=== PATIENT | female | born 1990 | race Caucasian/White ===

== ENCOUNTER 2017-12-13 04:01 | Emergency (ER) | payer SELFPAY ==
[2017-12-13] MEDS ORDERED: ONDANSETRON 4 MG TAB.RAPDIS PO ONE (04:44)
[2017-12-13] MEDS ORDERED: LORAZEPAM 1 MG TABLET PO ONE (05:13)
[2017-12-13] MEDS ORDERED: ONDANSETRON ODT 4 MG TAB (6 TAB/ER DISP) PO PRN (05:13)
--- NOTE | 2017-12-13 05:15 | ER Document Report ---
ED General - General Chief Complaint: Anxiety Stated Complaint: ANXIETY Time Seen by Provider: 12/13/17 04:25 Mode of Arrival: Ambulatory Information source: Patient Notes: Patient is a 27-year-old female who presents with chief complaint of anxiety. Patient reports that she just moved to the area approximately 6 weeks ago and feels that that was a big mistake. Patient lives with a roommate, and states she does not have any family or friends in the area. Patient reports history of anxiety and depression however she states she is not been on any medications for approximately 1 year. Patient denies any suicidal or homicidal ideations. - Related Data Allergies/Adverse Reactions: Penicillins Allergy (Verified 12/13/17 04:02) Past Medical History - General Information source: Patient - Social History Smoking Status: Current Every Day Smoker Frequency of alcohol use: None Drug Abuse: None Family History: Reviewed & Not Pertinent Psychiatric Medical History: Reports: Hx Anxiety, Hx Depression Surgical Hx: Negative - Immunizations Immunizations up to date: Yes Review of Systems - Review of Systems Neurological/Psychological: Anxiety -: Yes All other systems reviewed and negative Physical Exam - Vital signs Vitals: Temp Pulse Resp BP Pulse Ox 97.6 F 81 16 126/85 H 98 12/13/17 04:06 12/13/17 04:06 12/13/17 04:06 12/13/17 04:06 12/13/17 04:06 - Notes Notes: PHYSICAL EXAMINATION: GENERAL: Well-appearing, well-nourished and in no acute distress. HEAD: Atraumatic, normocephalic. EYES: Pupils equal round and reactive to light, extraocular movements intact, conjunctiva are normal. ENT: Nares patent, oropharynx clear without exudates. Moist mucous membranes. NECK: Normal range of motion, supple without lymphadenopathy LUNGS: Breath sounds clear to auscultation bilaterally and equal. No wheezes rales or rhonchi. HEART: Regular rate and rhythm without murmurs ABDOMEN: Soft, nontender, nondistended abdomen. No guarding, no rebound. No masses appreciated. Musculoskeletal: Normal range of motion, no pitting or edema. No cyanosis. NEUROLOGICAL: Cranial nerves grossly intact. Normal speech, normal gait. Normal sensory, motor exams PSYCH: Anxious, tearful. SKIN: Warm, Dry, normal turgor, no rashes or lesions noted. Course - Re-evaluation Re-evalutation: Patient's physical examination is benign. Patient will be given one-time dose of Ativan 1 mg p.o. and patient will be discharged home on Atarax 25 mg p.o. Patient will be given outpatient resources to follow-up with. Patient is agreeable to this plan. - Vital Signs Vital signs: Temp Pulse Resp BP Pulse Ox 98.4 F 85 16 123/78 99 12/13/17 05:35 12/13/17 05:35 12/13/17 05:35 12/13/17 05:35 12/13/17 05:35 Discharge - Discharge Clinical Impression: Anxiety Condition: Stable Disposition: HOME, SELF-CARE Instructions: Anxiety ([facility]) Additional Instructions: Anxiety The physician feels that some of your health problems are being caused by anxiety. Anxiety affects your health in many ways. Anxiety alone can cause palpitations, sweats, chest pains, abdominal pains, shortness of breath, and headaches. It contributes to ulcer disease, high blood pressure, irritable bowel syndrome, and has been shown to cause flare-ups of many other diseases. Anxiety is not a simple disorder to treat. If the anxiety is due to recent life stresses, you may simply need time to "work through" the changes. If the anxiety is due to an underlying unhappiness with yourself or due to psychiatric disturbance, professional help will be needed. Your physician can refer you for further help if needed. Anti-anxiety medication is occasionally given if the stress is acute or if you are having trouble sleeping. Chronic or frequent use of these medications is not a good idea because the body becomes reliant on it, preventing you from dealing with life's normal stresses. Please take medication as prescribed. Please follow-up with the outpatient resources that we are providing to. Please return to the emergency department if you have worsening of your symptoms or develop any suicidal or homicidal thoughts. Prescriptions: Hydroxyzine HCl [Atarax 25 mg Tablet] 1 - 2 tab PO QID #25 tablet
[2017-12-13 05:36] VITALS: BP 123/78
== END 2017-12-13 05:30 | disposition home or self-care (01) ==
LOC: ER 04:01
DX: F41.9 Anxiety disorder, unspecified (principal); F17.200 Nicotine dependence, unspecified, uncomplicated; Z88.0 Allergy status to penicillin
CPT/HCPCS: 99283; S0119